=== PATIENT | male | born 1980 | race Two or more races ===

== ENCOUNTER 2017-06-18 13:25 | Emergency (ER) | payer OTHER ==
[~2017-06-18] VITALS: Ht 160 cm; Wt 72.6 kg
[~2017-06-18 13:25] MED LIST: AMBIEN10 MG; LYRICA100 MG; PERCOCET 5/3251 TAB; ULTRAM50 MG
== END 2017-06-18 22:49 | disposition home or self-care (01) ==
LOC: ER 13:25
DX: L02.811 Cutaneous abscess of head [any part, except face] (principal); S01 Open wound of head; V49.69XS Unspecified car occupant injured in collision with other motor vehicles in traffic accident, sequela

== ENCOUNTER 2017-06-30 09:55 | Emergency (ER) | payer OTHER ==
[~2017-06-30] VITALS: Ht 157.5 cm; Wt 40.8 kg
== END 2017-06-30 13:00 | disposition home or self-care (01) ==
LOC: ER 09:55
DX: Z48.02 Encounter for removal of sutures (principal)

== ENCOUNTER → 2019-03-27 | Emergency (ER) | payer OTHER ==
[~2019-03-27] VITALS: Ht 162.6 cm; Wt 73.5 kg
[~2019-03-27] MED LIST changes: +PRILOSEC10 MG
== END | disposition left against medical advice (07) ==
LOC: ER 14:59
DX: Z53.20 Procedure and treatment not carried out because of patient's decision for unspecified reasons (principal)

== ENCOUNTER → 2019-04-03 | Outpatient (CLI) | payer OTHER | END | disposition home or self-care (01) | LOC: RX STUDY 08:15 | DX: K29.00 Acute gastritis without bleeding (principal) ==

== ENCOUNTER 2021-05-12 10:26 | Emergency (ER) | payer OTHER ==
[~2021-05-12] VITALS: Ht 162.6 cm; Wt 74.8 kg
[2021-05-12] MEDS ORDERED: ZESTRIL20 MG PO (10:46)
== END 2021-05-12 15:46 | disposition home or self-care (01) ==
LOC: ER 10:26
DX: E86.0 Dehydration (principal); E87.8 Other disorders of electrolyte and fluid balance, not elsewhere classified; Z03.818 Encounter for observation for suspected exposure to other biological agents ruled out

== ENCOUNTER 2022-06-11 16:36 | Emergency (ER) | payer OTHER ==
[~2022-06-11] VITALS: Ht 152.4 cm; Wt 76.2 kg
[~2022-06-11 16:36] MED LIST changes: +ZESTRIL20 MG PO
[2022-06-11] MEDS ORDERED: COZAAR50 MG (17:52)
[2022-06-11] MEDS ORDERED: CIPRO500 MG PO (20:29)
[2022-06-11] MEDS ORDERED: LEVSIN/SL0.125 MG SL (20:29)
[2022-06-11] MEDS ORDERED: PEPCID AC20 MG PO (20:29)
== END 2022-06-11 20:37 | disposition home or self-care (01) ==
LOC: ER 16:36
DX: K52.9 Noninfective gastroenteritis and colitis, unspecified (principal); I10 Essential (primary) hypertension

== ENCOUNTER 2022-06-15 08:42 | Emergency (ER) | payer OTHER ==
[~2022-06-15] VITALS: Ht 157.5 cm; Wt 74.8 kg
[~2022-06-15 08:42] MED LIST changes: +CIPRO500 MG PO; +COZAAR50 MG; +LEVSIN/SL0.125 MG SL; +PEPCID AC20 MG PO
== END 2022-06-15 11:46 | disposition home or self-care (01) ==
LOC: ER 08:42
DX: R10.9 Unspecified abdominal pain (principal)

== ENCOUNTER 2024-07-31 11:53 | Outpatient (CLI) | payer OTHER ==
[~2024-07-31 11:53] MED LIST changes: +AMBIEN10 MG PO; +CHILDREN'S ASPI81 MG PO; +CLEOCIN HCL300 MG PO; +LIPITOR40 M1 PO; +TRAMADOL HCL E100 M1 PO; +ZESTRIL5 MG PO
== END 2024-07-31 12:00 | disposition home or self-care (01) ==
LOC: TOM 11:53
PROVIDERS: ATTEND Internal Medicine
DX: I67.9 Cerebrovascular disease, unspecified (principal)
CPT/HCPCS: 70496; Q9965

== ENCOUNTER 2024-09-15 11:32 | Outpatient (CLI) | payer OTHER | END 2024-09-15 11:35 | disposition home or self-care (01) | LOC: TOM 11:32 | PROVIDERS: ATTEND Otolaryngology | DX: J32.1 Chronic frontal sinusitis (principal); J32.4 Chronic pansinusitis; J32.2 Chronic ethmoidal sinusitis; J34.2 Deviated nasal septum ==

== ENCOUNTER 2024-10-24 10:10 | Emergency (ER) | payer OTHER ==
[~2024-10-24] VITALS: Ht 162.6 cm; Wt 77.1 kg
[2024-10-24] MEDS ORDERED: PROTONIX IV40 MG (10:54)
[2024-10-24] MEDS ORDERED: MONTELUKAST SOD10 MG PO (10:55)
[2024-10-24] MEDS ORDERED: VALSARTAN80 MG PO (10:55)
[2024-10-24] MEDS ORDERED: 0.9 % SODIUM CHLORIDE 1,000 ML IV SCH (12:00)
[2024-10-24] MEDS ORDERED: FAMOTIDINE/PF 20 MG/2 ML VIAL IV PUSH ONE (12:00)
[2024-10-24] MEDS ORDERED: ONDANSETRON HCL 2 MG/ML VIAL IV ONE (12:00)
[2024-10-24 13:06] LABS: BASO % 0.2 % (0.1-1.2); EOS # 0.04 (0.04-0.54); EOS % 0.3 % (0.7-7.0); LYMPH # 1.30 (1.18-3.74); LYMPH % 10.4 % (19.3-53.1); MEAN PLATELET VOLUME 11.80 fl (9.4-12.4); MONO # 0.79 (0.24-0.82); MONO % 6.3 % (4.7-12.5); NEUT # 10.33 (1.56-6.13); NEUT % 82.5 % (34.0-71.1); RED CELL DISTRIBUTION WIDTH 13.2 % (11.6-14.4)
[2024-10-24 13:56] LABS: ALT/SGPT 59.0 U/L (12-78); AST/SGOT 17.0 U/L (15-37); BILIRUBIN TOTAL 0.42 mg/dL (0.3-1.2); BUN CREA RATIO 15.0 (7.0-25.0); CREATININE SERUM 0.99 mg/dL (0.70-1.30); GFR 82.12; GLOBULINA 3.4 G/DL (2.4-3.5); GLUCOSE FASTING 96.0 mg/dL (65-100); OSMOLALITY SERUM 280.0 MOSM/KG (275-295)
[2024-10-24] MEDS ORDERED: METRONIDAZOLE/SODIUM CHLORIDE 500 MG/100 ML PIGGYBACK IV ONE (15:15)
== END 2024-10-24 16:33 | disposition home or self-care (01) ==
LOC: ER 10:10
PROVIDERS: Emergency Medicine
DX: K52.89 Other specified noninfective gastroenteritis and colitis (principal); I10 Essential (primary) hypertension; K29.70 Gastritis, unspecified, without bleeding; I49.8 Other specified cardiac arrhythmias; A05.9 Bacterial foodborne intoxication, unspecified
CPT/HCPCS: 36415; 96365; 96366; 99282; J2405; J3490; J7030